=== PATIENT | female | born 1950 | race Caucasian/White ===

== ENCOUNTER 2019-01-14 01:55 | Emergency (ER) | payer OTHER ==
[~2019-01-14] VITALS: Ht 162.6 cm; Wt 70.0 kg
[2019-01-14] MEDS ORDERED: KETOROLAC 60MG/2ML VIAL IM STA (02:57)
[2019-01-14] MEDS ORDERED: BACITRACIN ZINC OINT UDPKT TOP ONE (03:00)
[2019-01-14] MEDS ORDERED: LIDOCAINE 1%/EPI 1:100,000 10 ML VIAL IJ ONE (03:00)
[2019-01-14] MEDS ORDERED: LIDOCAINE HCL/EPINEPHRINE 1%-EPI 1:100,000 20 ML VIAL INFIL SCH (03:39)
[2019-01-14 06:38] VITALS: BP 162/90
== END 2019-01-14 06:41 | disposition home or self-care (01) ==
LOC: ER 01:55
DX: S01.111A Laceration without foreign body of right eyelid and periocular area, initial encounter (principal); Z88.5 Allergy status to narcotic agent; W01.0XXA Fall on same level from slipping, tripping and stumbling without subsequent striking against object, initial encounter; Y93.01 Activity, walking, marching and hiking; Y92.89 Other specified places as the place of occurrence of the external cause; Y99.8 Other external cause status
CPT/HCPCS: 96372; 99283; J1885; J3490